=== PATIENT | male | born 1930 | race Caucasian/White ===

== ENCOUNTER 2016-11-18 18:16 | Emergency (ER) | payer MEDICARE ==
[~2016-11-18] VITALS: Ht 182.9 cm; Wt 104.5 kg
[~2016-11-18 18:16] MED LIST: ASPIR-LOW81 MG PO; ASPIRIN E.C. 8181 MG PO; BETAPACE160 MG PO; BLACK CHERRY JUICE; BUMEX 1MG TA1 MG/TA1 PO; BUMEX0.5 MG PO; CALTRATE-600 W600 MG PO; CENTRUM SILVER1 TA1 PO; CENTRUM SILVER1 TA2 PO; COUMADIN 2MG2 MG/TAB PO; COUMADIN 5MG5 MG/TAB PO; COUMADIN 6MG6 MG/TAB PO; COUMADIN4 MG PO; DEPAKOTE ER500 M1 PO; DEPAKOTE500 M1 PO; DEPAKOTE500 MG PO; DOXYCYCLINE 10100 MG PO; FISH OIL CONC1000 MG PO; FLORAJEN BIFIDO1 CAP PO; GLUCOSAMINE/CHONDROI PO; MOBIC15 MG PO; NEXIUM 20MG20 MG; NIASPAN 500MG500 MG PO; NITRO-DUR0.2 MG/PAT TD; PACERONE400 MG PO; PRILOSEC 20MG20 MG PO; PRINIVIL2.5 MG PO; PROAIR HFA0.09 MG/AC IH; PROBIOTIC FORMU1 CAP PO; PROBIOTIC-MAJOR; RISPERDAL2 MG PO; SYNTHROID0.1 MG/TAB PO; SYNTHROID0.125 MG/T PO; TYLENOL 500MG500 MG PO; TYLENOL PM EXTR1 TA1 PO; VIIBRYD20 MG PO; VITAMIN C1 TAB PO; VITAMIN E-400200 IU PO; ZYPREXA 5MG5 MG PO; ZYPREXA20 MG PO; [UNRECOGNIZED DRUG - REMARK] PO
[2016-11-18 18:29] VITALS: TEMP 98.5
[2016-11-18 19:21] LABS: BASO % 0.3 % (0.0-2.0); EOS % 0.5 % (0-4.0); GRAN # 4.3 (1.4-6.5); GRAN % 68.3 % (42.2-75.2); HEMATOCRIT 41.9 % (42.0-52.0); HEMOGLOBIN 13.8 g/dl (13.5-18.0); LYMPH # 1.1 (1.2-3.4); MEAN CELL VOLUME 98 fl (80.0-100.0); MEAN CORPUSCULAR HEMOGLOBIN 32 pg (27.0-31.0); MEAN CORPUSCULAR HGB CONC 33 g/dl (33.0-37.0); MEAN PLATELET VOLUME 11.6 fl (7.4-10.4); MONO # 0.8 (0.1-0.6); MONO % 12.6 % (1.7-9.3); PLATELET COUNT 192 K/mm3 (130-400); RED BLOOD COUNT 4.28 M/mm3 (4.20-5.60); REDCELL DISTRIBUTION WIDTH-CV 12.9 % (11.5-14.5); WHITE BLOOD COUNT 6.3 K/mm3 (4.8-10.8)
[2016-11-18 19:29] LABS: INR 2.9 (0.8-3.0); PROTHROMBIN TIME 32.8 SECONDS (9.7-12.8)
[2016-11-18 19:31] LABS: ADJUSTED CALCIUM 9.2 mg/dL (8.4-10.2); ALANINE AMINOTRANSFERASE 31 U/L (21-72); ALBUMIN 4.2 gm/dL (3.5-5.0); ALKALINE PHOSPHATASE 90 U/L (50-136); ANION GAP 13 mmol/L (7-16); BILIRUBIN,TOTAL 0.7 mg/dL (0.0-1.0); BLOOD UREA NITROGEN 24 mg/dL (9-20); CALCIUM 9.4 mg/dL (8.4-10.2); CARBON DIOXIDE 28 mmol/L (22-30); CHLORIDE 99 mmol/L (98-107); CREATININE, serum 1.44 mg/dL (0.66-1.25); GLUCOSE 128 mg/dL (74-106); POTASSIUM 3.9 mmol/L (3.4-5.0); SODIUM 140 mmol/L (137-145); TOTAL PROTEIN 7.7 gm/dL (6.4-8.2)
[2016-11-18 19:52] LABS: ACETAMINOPHEN < 10 ug/mL (10-30); SALICYLATE < 1.0 mg/dL
[2016-11-18 20:09] LABS: PH 7 (5-8); SQUAMOUS EPITHELIAL 0-2 /hpf; URINE APPEARANCE Clear; URINE BACTERIA None Seen /hpf; URINE BILIRUBIN Negative (NEGATIVE); URINE BLOOD Negative (NEGATIVE); URINE COLOR Yellow; URINE GLUCOSE Negative (NEGATIVE); URINE KETONE Negative (NEGATIVE); URINE RBC 0-2 /hpf; URINE UROBILINOGEN Negative (NEGATIVE); URINE WBC 0-2 /hpf
[2016-11-18 20:24] LABS: AMPHETAMINE URINE NEGATIVE; BARBITURATES URINE NEGATIVE; BENZODIAZEPINES URINE NEGATIVE; BUPRENORPHINE URINE NEGATIVE; METHADONE URINE NEGATIVE; OPIATES URINE NEGATIVE; OXYCODONE URINE NEGATIVE; PHENCYCLIDINE URINE NEGATIVE; PROPOXYPHENE URINE NEGATIVE; THC CANNABINOIDS URINE NEGATIVE
[2016-11-18] MEDS ORDERED: ATIVAN 0.50.5 MG/TAB PO (20:38)
[2016-11-18 21:02] VITALS: BP 159/84; PULSE 89
== END 2016-11-18 21:29 | disposition home or self-care (01) ==
LOC: COL.ER 18:16
PROVIDERS: Emergency Medicine
DX: R44.1 Visual hallucinations (principal); I48.91 Unspecified atrial fibrillation; Z79.01 Long term (current) use of anticoagulants

== ENCOUNTER → 2016-11-21 | Outpatient (CLI) | payer MEDICARE ==
[~2016-11-21] MED LIST changes: +ASPIRIN 81M81 MG/TA2 PO; +ATIVAN 0.50.5 MG/TAB PO; +CORDARONE200 MG/TAB PO; +DEPAKOTE 250MG250 MG PO
== END ==
LOC: BHSO 14:44
DX: F31.81 Bipolar II disorder (principal)

== ENCOUNTER 2016-12-04 09:49 | Inpatient (IN) | payer MEDICARE ==
[~2016-12-04] VITALS: Ht 175.3 cm; Wt 106.8 kg
[~2016-12-04 09:49] MED LIST changes: -ASPIRIN 81M81 MG/TA2 PO; -CORDARONE200 MG/TAB PO; -DEPAKOTE 250MG250 MG PO
[2016-12-04] MEDS ORDERED: CORDARONE200 MG/TAB PO (10:24)
[2016-12-04 10:25] LABS: BASO % 0.3 % (0.0-2.0); EOS % 0.5 % (0-4.0); GRAN # 5.2 (1.4-6.5); GRAN % 84.5 % (42.2-75.2); HEMATOCRIT 37.8 % (42.0-52.0); HEMOGLOBIN 12.3 g/dl (13.5-18.0); LYMPH # 0.3 (1.2-3.4); LYMPH % 4.4 % (20.0-51.0); MEAN CELL VOLUME 98 fl (80.0-100.0); MEAN CORPUSCULAR HEMOGLOBIN 32 pg (27.0-31.0); MEAN CORPUSCULAR HGB CONC 33 g/dl (33.0-37.0); MEAN PLATELET VOLUME 11.9 fl (7.4-10.4); MONO # 0.6 (0.1-0.6); PLATELET COUNT 136 K/mm3 (130-400); RED BLOOD COUNT 3.86 M/mm3 (4.20-5.60); REDCELL DISTRIBUTION WIDTH-CV 13.1 % (11.5-14.5); WHITE BLOOD COUNT 6.2 K/mm3 (4.8-10.8)
[2016-12-04 10:29] LABS: PROTHROMBIN TIME 35.4 SECONDS (9.7-12.8)
[2016-12-04 10:31] LABS: PARTIAL THROMBOPLASTIN TIME 41.7 SECONDS (26.0-37.0)
[2016-12-04 10:33] LABS: INR 3.1 (0.8-3.0)
[2016-12-04 10:41] LABS: ADJUSTED CALCIUM 9.8 mg/dL (8.4-10.2); ALANINE AMINOTRANSFERASE 29 U/L (21-72); ALBUMIN 3.8 gm/dL (3.5-5.0); ALKALINE PHOSPHATASE 75 U/L (50-136); ANION GAP 10 mmol/L (7-16); BLOOD UREA NITROGEN 22 mg/dL (9-20); C-REACTIVE PROTEIN 1.7 mg/dL (0.0-0.9); CALCIUM 9.6 mg/dL (8.4-10.2); CARBON DIOXIDE 30 mmol/L (22-30); CHLORIDE 99 mmol/L (98-107); CREATININE, serum 1.51 mg/dL (0.66-1.25); GLUCOSE 105 mg/dL (74-106); POTASSIUM 3.8 mmol/L (3.4-5.0); SODIUM 139 mmol/L (137-145); TOTAL PROTEIN 6.7 gm/dL (6.4-8.2)
[2016-12-04 10:51] LABS: B-TYPE NATRIURETIC PEPTIDE 1610 pg/mL (0-450); TROPONIN-I < 0.012 ng/mL (0.000-0.034)
[2016-12-04 11:09] LABS: CREATINE KINASE 53 U/L (55-170)
[2016-12-04 11:24] LABS: PH 8 (5-8); SQUAMOUS EPITHELIAL None Seen /hpf; URINE APPEARANCE Clear; URINE BACTERIA None Seen /hpf; URINE BILIRUBIN Negative (NEGATIVE); URINE BLOOD Negative (NEGATIVE); URINE COLOR Yellow; URINE GLUCOSE Negative (NEGATIVE); URINE KETONE Negative (NEGATIVE); URINE UROBILINOGEN Negative (NEGATIVE); URINE WBC 0-2 /hpf
[2016-12-04 14:05] VITALS: BP 155/72; PULSE 63; TEMP 98.2
[2016-12-04 16:00] VITALS: BP 124/54; PULSE 57; TEMP 98.9
[2016-12-04 20:47] VITALS: BP 130/53; PULSE 63; TEMP 98.4
[2016-12-05] VITALS (7 sets, daily range): BP systolic 120–157; BP diastolic 49–73; PULSE 50–64; TEMP 97–98.8
[2016-12-05 07:43] LABS: HEMATOCRIT 37.6 % (42.0-52.0); HEMOGLOBIN 12.3 g/dl (13.5-18.0); MEAN CELL VOLUME 98 fl (80.0-100.0); MEAN CORPUSCULAR HEMOGLOBIN 32 pg (27.0-31.0); MEAN CORPUSCULAR HGB CONC 33 g/dl (33.0-37.0); MEAN PLATELET VOLUME 12.1 fl (7.4-10.4); PLATELET COUNT 105 K/mm3 (130-400); RED BLOOD COUNT 3.83 M/mm3 (4.20-5.60); REDCELL DISTRIBUTION WIDTH-CV 13.2 % (11.5-14.5); WHITE BLOOD COUNT 4.9 K/mm3 (4.8-10.8)
[2016-12-05 07:51] LABS: ADD PATHOLOGY DIFF REVIEW NO
[2016-12-05 08:05] LABS: BAND 10 % (0-10); BASOPHIL 1 % (0-2); NEUTROPHILS 75 % (42.0-75.2); PLATELET ESTIMATE DECREASED (NORMAL); TOTAL CELLS COUNTED 100
[2016-12-05 08:08] LABS: CALCIUM 9.1 mg/dL (8.4-10.2); CREATININE, serum 1.44 mg/dL (0.66-1.25); POTASSIUM 3.5 mmol/L (3.4-5.0)
[2016-12-05 12:27] LABS: INR 2.3 (0.8-3.0); PROTHROMBIN TIME 26.2 SECONDS (9.7-12.8)
[2016-12-06 03:33] VITALS: BP 157/58; PULSE 56; TEMP 98.7
[2016-12-06 07:30] VITALS: BP 155/70; PULSE 58; TEMP 98.3
[2016-12-06] MEDS ORDERED: ASPIRIN 81M81 MG/TA2 PO (10:50)
[2016-12-06] MEDS ORDERED: ATIVAN 0.50.5 MG/TAB PO (10:51)
[2016-12-06 12:20] LABS: CALCIUM 8.8 mg/dL (8.4-10.2); CREATININE, serum 1.38 mg/dL (0.66-1.25); POTASSIUM 3.6 mmol/L (3.4-5.0)
[2016-12-06] MEDS ORDERED: CORDARONE200 MG/TAB PO (15:56)
[2016-12-06 16:12] VITALS: BP 133/66; PULSE 62; TEMP 98.9
[2016-12-06 20:10] VITALS: BP 148/60; PULSE 77; TEMP 98.4
[2016-12-06 23:08] VITALS: BP 132/67; PULSE 58; TEMP 97.7
[2016-12-07 03:21] VITALS: BP 148/70; PULSE 61; TEMP 98.4
[2016-12-07 07:46] VITALS: BP 150/60; PULSE 60; TEMP 97.5
[2016-12-07 11:29] VITALS: BP 119/98; PULSE 62; TEMP 98.2
== END 2016-12-07 13:00 | DRG 948 ==
LOC: COL.ER 09:49 → MEDICAL 12:06
PROVIDERS: Emergency Medicine; Internal Medicine; Nurse Practitioner Family
DX: R53.81 Other malaise (principal); E03.9 Hypothyroidism, unspecified; K21.9 Gastro-esophageal reflux disease without esophagitis; I48.91 Unspecified atrial fibrillation; F03.90 Unspecified dementia, unspecified severity, without behavioral disturbance, psychotic disturbance, mood disturbance, and anxiety; R19.7 Diarrhea, unspecified; F31.9 Bipolar disorder, unspecified; M25.552 Pain in left hip; M25.562 Pain in left knee; W19.XXXA Unspecified fall, initial encounter; Z79.01 Long term (current) use of anticoagulants
CPT/HCPCS: 99222-AI; 99232-AI; 99239

== ENCOUNTER → 2016-12-15 | Outpatient (CLI) | payer OTHER, MEDICARE ==
[~2016-12-15] MED LIST changes: +ASPIRIN 81M81 MG/TA2 PO; +CORDARONE200 MG/TAB PO; +DEPAKOTE 250MG250 MG PO
== END ==
LOC: COL.VAS 09:41
DX: I35.1 Nonrheumatic aortic (valve) insufficiency (principal); R94.39 Abnormal result of other cardiovascular function study; I48.91 Unspecified atrial fibrillation

== ENCOUNTER → 2017-01-05 | Outpatient (CLI) | payer MEDICARE | LOC: BHSO 13:43 | DX: F31.81 Bipolar II disorder (principal) ==

== ENCOUNTER → 2017-04-06 | Outpatient (CLI) | payer MEDICARE | LOC: BHSO 12:48 | DX: F31.73 Bipolar disorder, in partial remission, most recent episode manic (principal) ==

== ENCOUNTER → 2017-04-19 | Outpatient (CLI) | payer MEDICARE | LOC: WCC 09:11 | DX: I87.322 Chronic venous hypertension (idiopathic) with inflammation of left lower extremity (principal); L03.211 Cellulitis of face; R35.1 Nocturia; F03.90 Unspecified dementia, unspecified severity, without behavioral disturbance, psychotic disturbance, mood disturbance, and anxiety | CPT/HCPCS: A6207; A6212; G0463 ==

== ENCOUNTER → 2017-04-28 | Outpatient (CLI) | payer MEDICARE | LOC: WCC 08:49 | DX: I87.2 Venous insufficiency (chronic) (peripheral) (principal); L97.829 Non-pressure chronic ulcer of other part of left lower leg with unspecified severity | CPT/HCPCS: 13919; 17717; 27516; 50005; A6207; A6212; Q4172 ==

== ENCOUNTER → 2017-05-04 | Outpatient (CLI) | payer MEDICARE | LOC: BHSO 14:57 | DX: F41.1 Generalized anxiety disorder (principal) ==

== ENCOUNTER → 2017-05-05 | Outpatient (CLI) | payer MEDICARE | LOC: WCC 10:16 | DX: L97.829 Non-pressure chronic ulcer of other part of left lower leg with unspecified severity (principal); I87.2 Venous insufficiency (chronic) (peripheral) | CPT/HCPCS: 13919; 18867; 27517; A6207; A6209; G0463 ==

== ENCOUNTER → 2017-05-12 | Outpatient (CLI) | payer MEDICARE | LOC: WCC 09:54 | DX: L97.829 Non-pressure chronic ulcer of other part of left lower leg with unspecified severity (principal); I87.2 Venous insufficiency (chronic) (peripheral); F03.90 Unspecified dementia, unspecified severity, without behavioral disturbance, psychotic disturbance, mood disturbance, and anxiety | CPT/HCPCS: 13919; 18867; 27517; A6207; A6209; G0463 ==

== ENCOUNTER → 2017-05-19 | Outpatient (CLI) | payer MEDICARE | LOC: WCC 10:23 | DX: I87.2 Venous insufficiency (chronic) (peripheral) (principal); L97.829 Non-pressure chronic ulcer of other part of left lower leg with unspecified severity | CPT/HCPCS: 13919; 17717; 27517; A6207; A6212; G0463 ==

== ENCOUNTER → 2017-05-26 | Outpatient (CLI) | payer MEDICARE | LOC: COL.VAS 08:29 | DX: L97.829 Non-pressure chronic ulcer of other part of left lower leg with unspecified severity (principal); I87.2 Venous insufficiency (chronic) (peripheral) ==

== ENCOUNTER → 2017-05-26 | Outpatient (CLI) | payer MEDICARE | LOC: WCC 08:20 | DX: Z01.89 Encounter for other specified special examinations (principal) ==

== ENCOUNTER → 2017-06-01 | Outpatient (CLI) | payer MEDICARE | LOC: WCC 10:01 | DX: L97.829 Non-pressure chronic ulcer of other part of left lower leg with unspecified severity (principal); I87.2 Venous insufficiency (chronic) (peripheral) | CPT/HCPCS: 13919; 17717; 27517; A6207; A6212; G0463 ==

== ENCOUNTER → 2017-06-09 | Outpatient (CLI) | payer MEDICARE | LOC: WCC 11:19 | DX: Z01.89 Encounter for other specified special examinations (principal) ==

== ENCOUNTER 2017-06-14 07:10 | Day surgery (SDC) | payer MEDICARE ==
[2017-06-14] VITALS (11 sets, daily range): BP systolic 131–156; BP diastolic 56–78; PULSE 45–78; TEMP 98
[~2017-06-14] VITALS: Ht 175.3 cm; Wt 99.1 kg
[~2017-06-14 07:10] MED LIST changes: -DEPAKOTE 250MG250 MG PO
[2017-06-14 08:05] LABS: HEMATOCRIT 41.2 % (42.0-52.0); HEMOGLOBIN 13.5 g/dl (13.5-18.0); MEAN CELL VOLUME 102 fl (80.0-100.0); MEAN CORPUSCULAR HEMOGLOBIN 33 pg (27.0-31.0); MEAN CORPUSCULAR HGB CONC 33 g/dl (33.0-37.0); MEAN PLATELET VOLUME 11.6 fl (7.4-10.4); PLATELET COUNT 180 K/mm3 (130-400); RED BLOOD COUNT 4.04 M/mm3 (4.20-5.60); REDCELL DISTRIBUTION WIDTH-CV 13.3 % (11.5-14.5); WHITE BLOOD COUNT 5.4 K/mm3 (4.8-10.8)
[2017-06-14 08:10] LABS: PROTHROMBIN TIME 11.6 SECONDS (9.7-12.8)
[2017-06-14 08:15] LABS: CREATININE, serum 1.34 mg/dL (0.66-1.25)
[2017-06-14] MEDS ORDERED: ASPIRIN 81M81 MG/TA2 PO (09:00)
[2017-06-14] MEDS ORDERED: BUMEX0.5 MG PO (09:05)
[2017-06-14] MEDS ORDERED: CORDARONE200 MG/TAB PO (09:06)
[2017-06-14] MEDS ORDERED: DEPAKOTE 250MG250 MG PO (09:11)
[2017-06-14] MEDS ORDERED: ATIVAN 0.50.5 MG/TAB PO (09:14)
== END 2017-06-14 16:10 | disposition home or self-care (01) ==
LOC: COL.CAR 07:10
PROVIDERS: Radiology Diagnostic Radiology
DX: I77.1 Stricture of artery (principal); L97.229 Non-pressure chronic ulcer of left calf with unspecified severity; I48.91 Unspecified atrial fibrillation; I48.92 Unspecified atrial flutter; E03.9 Hypothyroidism, unspecified; I50.9 Heart failure, unspecified; K21.9 Gastro-esophageal reflux disease without esophagitis; F03.90 Unspecified dementia, unspecified severity, without behavioral disturbance, psychotic disturbance, mood disturbance, and anxiety; Z79.01 Long term (current) use of anticoagulants
CPT/HCPCS: C1724; C1725; C1760; C1769; C1887; C1894; J1644; J3010; J7120; Q9967

== ENCOUNTER → 2017-06-19 | Outpatient (CLI) | payer MEDICARE ==
[~2017-06-19] MED LIST changes: +DEPAKOTE 250MG250 MG PO
== END ==
LOC: WCC 08:11
DX: L97.829 Non-pressure chronic ulcer of other part of left lower leg with unspecified severity (principal)
CPT/HCPCS: 17717; A6212; G0463

== ENCOUNTER → 2017-06-28 | Outpatient (CLI) | payer MEDICARE | LOC: WCC 09:07 | DX: I87.2 Venous insufficiency (chronic) (peripheral) (principal); L97.829 Non-pressure chronic ulcer of other part of left lower leg with unspecified severity; F03.90 Unspecified dementia, unspecified severity, without behavioral disturbance, psychotic disturbance, mood disturbance, and anxiety | CPT/HCPCS: 18867; 27513; 27516; 50005; A6207; A6209; A6456; Q4172 ==

== ENCOUNTER → 2017-07-05 | Outpatient (CLI) | payer MEDICARE | LOC: WCC 09:01 | DX: I87.2 Venous insufficiency (chronic) (peripheral) (principal); L97.829 Non-pressure chronic ulcer of other part of left lower leg with unspecified severity | CPT/HCPCS: 18867; 27513; 27516; 50005; A6207; A6209; A6456; Q4172 ==

== ENCOUNTER → 2017-07-12 | Outpatient (CLI) | payer MEDICARE | LOC: WCC 11:38 | DX: I87.2 Venous insufficiency (chronic) (peripheral) (principal); L97.829 Non-pressure chronic ulcer of other part of left lower leg with unspecified severity | CPT/HCPCS: 18867; 27513; 27516; 50005; A6207; A6209; A6456; Q4172 ==

== ENCOUNTER → 2017-07-19 | Outpatient (CLI) | payer MEDICARE | LOC: WCC 07-17 09:23 | DX: I87.2 Venous insufficiency (chronic) (peripheral) (principal); L97.829 Non-pressure chronic ulcer of other part of left lower leg with unspecified severity | CPT/HCPCS: 13919; 14933; 18867; 27516; A6207; A6209; Q4101 ==

== ENCOUNTER → 2017-07-28 | Outpatient (CLI) | payer MEDICARE | LOC: WCC 08:34 | DX: I87.2 Venous insufficiency (chronic) (peripheral) (principal); L97.929 Non-pressure chronic ulcer of unspecified part of left lower leg with unspecified severity | CPT/HCPCS: 14933; 17717; 27516; A6207; A6212; Q4101 ==

== ENCOUNTER → 2017-08-04 | Outpatient (CLI) | payer MEDICARE | LOC: WCC 11:45 | DX: I87.2 Venous insufficiency (chronic) (peripheral) (principal); L97.829 Non-pressure chronic ulcer of other part of left lower leg with unspecified severity | CPT/HCPCS: 14933; 17717; 27516; A6207; A6212; Q4101 ==

== ENCOUNTER → 2017-08-11 | Outpatient (CLI) | payer MEDICARE | LOC: WCC 14:34 | DX: L97.829 Non-pressure chronic ulcer of other part of left lower leg with unspecified severity (principal); I87.2 Venous insufficiency (chronic) (peripheral) | CPT/HCPCS: 17717; A6212; G0463 ==

== ENCOUNTER → 2017-08-11 | Outpatient (CLI) | payer MEDICARE | LOC: BHSO 15:55 | DX: F31.73 Bipolar disorder, in partial remission, most recent episode manic (principal) ==

== ENCOUNTER → 2017-08-18 | Outpatient (CLI) | payer MEDICARE | LOC: WCC 10:48 | DX: I87.2 Venous insufficiency (chronic) (peripheral) (principal); L97.929 Non-pressure chronic ulcer of unspecified part of left lower leg with unspecified severity | CPT/HCPCS: 13919; 14933; 17717; 27516; A6207; A6212; Q4101 ==

== ENCOUNTER → 2017-09-13 | Day surgery (SDC) | payer MEDICARE ==
[~2017-09-13] VITALS: Ht 177.8 cm; Wt 95.6 kg
[2017-09-13] VITALS (12 sets, daily range): BP systolic 112–168; BP diastolic 60–99; PULSE 41–59
[2017-09-13 07:27] LABS: HEMATOCRIT 44.4 % (42.0-52.0); HEMOGLOBIN 14.7 g/dl (13.5-18.0); MEAN CELL VOLUME 101 fl (80.0-100.0); MEAN CORPUSCULAR HEMOGLOBIN 33 pg (27.0-31.0); MEAN CORPUSCULAR HGB CONC 33 g/dl (33.0-37.0); MEAN PLATELET VOLUME 11.9 fl (7.4-10.4); PLATELET COUNT 174 K/mm3 (130-400); RED BLOOD COUNT 4.41 M/mm3 (4.20-5.60); WHITE BLOOD COUNT 5.5 K/mm3 (4.8-10.8)
[2017-09-13 07:35] LABS: PROTHROMBIN TIME 11.2 SECONDS (9.7-12.8)
[2017-09-13 07:44] LABS: CREATININE, serum 1.27 mg/dL (0.66-1.25)
== END ==
LOC: COL.CAR 08-29 09:00
PROVIDERS: Radiology Diagnostic Radiology
DX: L97.229 Non-pressure chronic ulcer of left calf with unspecified severity (principal); I25.10 Atherosclerotic heart disease of native coronary artery without angina pectoris; Q27.32 Arteriovenous malformation of vessel of lower limb; I87.8 Other specified disorders of veins; I48.91 Unspecified atrial fibrillation; E03.9 Hypothyroidism, unspecified; I50.9 Heart failure, unspecified; I35.1 Nonrheumatic aortic (valve) insufficiency; M16.10 Unilateral primary osteoarthritis, unspecified hip; K21.9 Gastro-esophageal reflux disease without esophagitis; G20 Parkinson's disease; F02.80 Dementia in other diseases classified elsewhere, unspecified severity, without behavioral disturbance, psychotic disturbance, mood disturbance, and anxiety; Z86.73 Personal history of transient ischemic attack (TIA), and cerebral infarction without residual deficits; G70.9 Myoneural disorder, unspecified
CPT/HCPCS: J1644; J2704; J3010; J7030; Q9967

== ENCOUNTER 2017-09-16 22:48 | Emergency (ER) | payer MEDICARE ==
[~2017-09-16] VITALS: Ht 177.8 cm; Wt 95.5 kg
[2017-09-16 22:51] VITALS: BP 134/67; TEMP 98.2
[2017-09-16 23:21] VITALS: PULSE 74
== END 2017-09-16 23:29 | disposition home or self-care (01) ==
LOC: COL.ER 22:48
DX: R58 Hemorrhage, not elsewhere classified (principal); I48.91 Unspecified atrial fibrillation; F31.9 Bipolar disorder, unspecified; K21.9 Gastro-esophageal reflux disease without esophagitis; Z87.39 Personal history of other diseases of the musculoskeletal system and connective tissue; Z79.82 Long term (current) use of aspirin; Z98.890 Other specified postprocedural states

== ENCOUNTER → 2017-12-07 | Outpatient (REF) ==
[~2017-12-07] MED LIST changes: +DIPROLENE CR15GM TP; +IPRATROPIUM BROM3 M1 IH; +OMNICEF 300MG300 MG PO; +ULTRAM 50MG TAB50 MG PO
[2017-12-07 05:09] LABS: CALCIUM 9.1 mg/dL (8.4-10.2); CREATININE, serum 1.33 mg/dL (0.66-1.25); POTASSIUM 4.3 mmol/L (3.4-5.0)
[2017-12-07 05:14] LABS: VALPROIC ACID (DEPAKENE) 23.9 ug/mL (50.0-100.0)
[2017-12-07 05:17] LABS: BASO % 0.4 % (0.0-2.0); EOS # 0.1 (0.0-0.7); EOS % 2.6 % (0-4.0); GRAN % 55.6 % (42.2-75.2); LYMPH # 1.6 (1.2-3.4); LYMPH % 29.6 % (20.0-51.0); MEAN CELL VOLUME 103 fl (80.0-100.0); MEAN CORPUSCULAR HGB CONC 33 g/dl (33.0-37.0); MONO # 0.6 (0.1-0.6); MONO % 11.3 % (1.7-9.3); PLATELET COUNT 158 K/mm3 (130-400); REDCELL DISTRIBUTION WIDTH-CV 13.6 % (11.5-14.5)
[2017-12-07 05:19] LABS: HEMATOCRIT 36.1 % (42.0-52.0); HEMOGLOBIN 11.9 g/dl (13.5-18.0); MEAN CORPUSCULAR HEMOGLOBIN 34 pg (27.0-31.0)
== END ==
LOC: ZCOL.LAB 04:54
PROVIDERS: Family Medicine
DX: R79.89 Other specified abnormal findings of blood chemistry (principal); R26.9 Unspecified abnormalities of gait and mobility

== ENCOUNTER → 2017-12-07 | Outpatient (CLI) | payer MEDICARE | LOC: BHSO 10:20 | DX: F33.1 Major depressive disorder, recurrent, moderate (principal) | CPT/HCPCS: G0463 ==

== ENCOUNTER → 2017-12-12 | Outpatient (REF) ==
[2017-12-12 08:47] LABS: COLLECTION METHOD CLEAN CATCH
[2017-12-12 08:56] LABS: MUCOUS Present /lpf; PH 5 (5-8); SQUAMOUS EPITHELIAL 0-2 /hpf; URINE APPEARANCE Clear; URINE BACTERIA None Seen /hpf; URINE BILIRUBIN Negative (NEGATIVE); URINE BLOOD Negative (NEGATIVE); URINE COLOR Yellow; URINE GLUCOSE 1+ (NEGATIVE); URINE KETONE Trace (NEGATIVE); URINE LEUKOCYTE ESTERASE Negative (NEGATIVE); URINE NITRATE Negative (NEGATIVE); URINE PROTEIN(semi-quant) Negative (NEGATIVE); URINE RBC 0-2 /hpf; URINE UROBILINOGEN Negative (NEGATIVE)
== END ==
LOC: ZCOL.LAB 08:45
PROVIDERS: Family Medicine
DX: I12.9 Hypertensive chronic kidney disease with stage 1 through stage 4 chronic kidney disease, or unspecified chronic kidney disease (principal); N18.9 Chronic kidney disease, unspecified

== ENCOUNTER → 2017-12-19 | Outpatient (CLI) | payer MEDICARE | LOC: MHCPAIN 13:32 | DX: G89.29 Other chronic pain (principal); M79.2 Neuralgia and neuritis, unspecified; M79.1 Myalgia; M16.12 Unilateral primary osteoarthritis, left hip | CPT/HCPCS: G0463 ==

== ENCOUNTER → 2017-12-22 | Outpatient (REF) | LOC: ZCOL.LAB 23:31 | DX: Z01.89 Encounter for other specified special examinations (principal) ==